=== PATIENT | male | born 1970 | race Caucasian/White ===

== ENCOUNTER 2017-05-19 17:55 | Emergency (ER) | payer OTHER ==
--- NOTE | 2017-05-19 18:10 | EDM.PDOC ---
ED HPI GENERAL MEDICAL PROBLEM - General Stated Complaint: COUGH, CONGESTION Time Seen by Provider: 05/19/17 17:55 Source of Information: Reports: Patient. Denies: Old Records (No [facility] records available) History Limitations: Reports: No Limitations - History of Present Illness INITIAL COMMENTS - FREE TEXT/NARRATIVE: Patient drove himself to the emergency room via private automobile for evaluation of progressive nasal drainage and yellowish productive cough with some secondary hemoptysis during the last few days. He has not had an influenza booster this season. His did have similar type symptoms 1 week ago, however she did not require antibiotics. Patient does have a history of asthma and severe pneumonia secondary to influenza A requiring hospitalization last year. No other known exposure to infection, including influenza, strep throat, etc. He does complain of a severe 10/10 sore throat with fever of 100.4 a couple of days ago. He has been using OTC cold and cough preparations, however no antipyretic medications today. The patient denies any chest pain/pressure, heart flutter, dizziness, orthostasis, orthopnea, diaphoresis, paresthesias, recent decreased exercise tolerance, or any other anginal-type symptoms. No recent history of abdominal pain, heartburn, nausea, diarrhea, melena, gross hematochezia, or any food intolerance, including fatty foods, etc. with normal bowel movement at about 6 AM this morning. He also denies any gross hematuria, colic, or other UTI symptoms. Onset: Gradual Onset Date: 05/14/17 Duration: Constant, Getting Worse Location: Reports: Other (Sore throat as above). Denies: Head, Face, Neck, Chest, Abdomen, Back, Pelvis, Generalized, Radiates to Quality: Reports: Same as Previous Episode, Sharp Improves with: Reports: None Worsens with: Reports: None Context: Reports: Sick Contact (As above) Associated Symptoms: Reports: Cough, cough w sputum, Fever/Chills. 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: Reports: Other Medication(s) (As above) chest pain Pain Score (Numeric/FACES): 1 (Nonspecific pain with coughing only with no pleurisy) - Related Data Allergies Allergy/AdvReac Type Severity Reaction Status Date / Time No Known Allergies Allergy Verified 05/19/17 18:46 Home Meds: Home Meds Albuterol Sulfate [Proair Hfa] 2 puff INH Q4HR PRN 05/19/17 [History] Dextromethorphan/guaiFENesin [Mucinex DM ER 600-30 MG] 1 tab PO BID #20 tab.er 05/19/17 [Rx] Fluticasone Propionate [Flonase] 2 spray INH DAILY 05/19/17 [History] Multivitamin [Multivitamins] 1 tab PO DAILY 05/19/17 [History] Past Medical History HEENT History: Reports: Allergic Rhinitis. Denies: Hard of Hearing, Impaired Vision Cardiovascular History: Denies: High Cholesterol, Hypertension Respiratory History: Reports: Asthma, Bronchitis, Recurrent Endocrine/Metabolic History: Reports: Other (See Below) Other Endocrine/Metabolic History: Hyperglycemia treated with diet - Past Surgical History HEENT Surgical History: Reports: Oral Surgery, Other (See Below) Other HEENT Surgeries/Procedures: [place] teeth extraction x 4 in 2000 Male Surgical History: Reports: Circumcision, Vasectomy, Other (See Below) Other Male Surgeries/Procedures: Circumcision as an . Vasectomy in 2009. 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 ED EXAM, GENERAL - Physical Exam Exam: See Below Exam Limited By: No Limitations General Appearance: Alert, WD/WN, No Apparent Distress Eye Exam: Bilateral Eye: EOMI, Normal Inspection (No nystagmus), PERRL Ears: Normal External Exam, Normal Canal, Hearing Grossly Normal, Normal TMs Nose: Normal Mucosa, No Blood, Clear Rhinorrhea (Moderate bilateral clear nasal drainage) Throat/Mouth: Normal Lips, Normal Teeth, Normal Gums, Normal Oropharynx (++1 erythema in the posterior pharynx with no pinpoint white exudates or peritonsillar abscess), Normal Voice, No Airway Compromise. No: Dysphagia, Inflammation, Perioral Cyanosis Head: Atraumatic, Normocephalic. No: Facial Swelling, Facial Tenderness, Sinus Tenderness Neck: Normal Inspection, Supple, Non-Tender, Full Range of Motion. No: Lymphadenopathy (L), Lymphadenopathy (R), Thyromegaly Respiratory/Chest: No Respiratory Distress, Lungs Clear, Normal Breath Sounds, No Accessory Muscle Use, Chest Non-Tender. No: Pleural Rub, Retractions Cardiovascular: Normal Peripheral Pulses, Regular Rate, Rhythm, No Edema, No Gallop, No JVD, No Murmur, No Rub. No: Gallop/S3, Gallop/S4, Friction Rub Peripheral Pulses: 2+: Radial (L), Radial (R) GI/Abdominal: Normal Bowel Sounds, Soft, Non-Tender, No Organomegaly, No Distention, No Abnormal Bruit, No Mass. No: Guarding (Male) Exam: Deferred Rectal (Males) Exam: Deferred Back Exam: Normal Inspection, Full Range of Motion. No: CVA Tenderness (L), CVA Tenderness (R), Muscle Spasm Extremities: Normal Inspection, Normal Range of Motion, Non-Tender, Normal Capillary Refill, No Pedal Edema Neurological: Alert, Oriented, CN II-XII Intact, Normal Cognition, Normal Gait, No Motor/Sensory Deficits Psychiatric: Normal Affect, Normal Mood Skin Exam: Warm, Dry, Intact, Normal Color, No Rash Lymphatic: No Adenopathy Course - Vital Signs Last Recorded V/S: Last Vital Signs Temp 37.4 C 05/19/17 18:57 Pulse 87 05/19/17 18:57 Resp 20 05/19/17 18:57 BP 135/73 05/19/17 18:57 Pulse Ox 95 05/19/17 18:57 Vital Signs - 24 hr 05/19/17 05/19/17 17:55 18:57 Temperature [ 36.8 C 37.4 C Oral] Pulse, 91 87 Peripheral [ Left Pulse Oximetry] Respiratory 18 20 Rate Blood Pressure 143/79 H 135/73 [left uppe arm] O2 Sat by Pulse 96 95 Oximetry - Orders/Labs/Meds Orders: Active Orders 24 hr Category Date Time Status Chest 2V [CR] Urgent Exams 05/19/17 18:12 Taken CULTURE BLOOD [BC] Stat Lab 05/19/17 18:20 Received CULTURE BLOOD [BC] Stat Lab 05/19/17 18:45 Received CULTURE SPUTUM + SMEAR [] Routine Lab 05/19/17 18:11 Ordered CULTURE STREP A CONFIRMATION [] Stat Lab 05/19/17 18:10 Results STREP SCRN A RAPID W CULT CONF [] Stat Lab 05/19/17 18:10 Results Blood Culture x2 Reflex Set [OM.PC] Urgent Oth 05/19/17 18:11 Ordered Labs: Laboratory Tests 05/19/17 05/19/17 Range/Units 18:20 18:20 WBC 6.6 (4.0-10.2) K/uL RBC 4.92 (4.33-5.41) M/uL Hgb 14.7 (13.1-16.8) g/dL Hct 42.5 (39.0-49.0) % MCV 86.4 (84.0-98.0) fL MCH 29.9 (28.2-33.3) pg MCHC 34.6 (31.7-36.0) g/dL RDW 13.9 (11.2-14.1) % Plt Count 140 L (150-350) K/uL Neut % (Auto) 51.2 (45.0-80.0) % Lymph % (Auto) 33.9 (10.0-50.0) % [place] % (Auto) 12.4 (2.0-14.0) % Eos % (Auto) 2.3 (0.0-5.0) % Baso % (Auto) 0.2 (0.0-2.0) % Neut # (Auto) 3.38 (1.40-7.00) K/uL Lymph # (Auto) 2.24 (0.50-3.50) K/uL [place] # (Auto) 0.82 (0.00-1.00) K/uL Eos # (Auto) 0.15 (0.00-0.50) K/uL Baso # (Auto) 0.01 (0.00-0.20) K/uL Sodium 141 (136-145) mmol/L Potassium 3.5 (3.5-5.1) mmol/L Chloride 103 (98-107) mmol/L Carbon Dioxide 29.4 (21.0-32.0) mmol/L BUN 19 H (7-18) mg/dL Creatinine 1.12 (0.51-1.17) mg/dL Est Cr Clr Drug Dosing TNP Estimated GFR (MDRD) > 60 mL/min Glucose 118 H (74-106) mg/dL Calcium 8.9 (8.5-10.1) mg/dL Total Bilirubin 0.6 (0.2-1.0) mg/dL AST 27 (15-37) U/L ALT 35 (12-78) U/L Alkaline Phosphatase 99 (46-116) IU/L Total Protein 8.2 (6.4-8.2) g/dL Albumin 4.1 (3.4-5.0) g/dL Blood cultures 2 collected Meds: Medications Discontinued Medications Generic Name Dose Route Start Last Admin Trade Name Freq PRN Reason Stop Dose Admin Methylprednisolone Acetate 80 mg 05/19/17 19:13 Depo-Medrol IM 05/19/17 19:14 ONETIME ONE - Radiology Interpretation Free Text/Narrative:: Chest x-ray, PA and lateral, shows evidence of mild to moderate pulmonary obstructive disease with no pulmonary infiltrates, cardiomegaly, CHF, pneumothorax, etc. Departure - Departure Time of Disposition: 19:27 Disposition: Home, Self-Care 01 Condition: Good Clinical Impression: Bronchitis, Hyperglycemia, Asthma, Allergic rhinitis URI (upper respiratory infection) Qualifiers: URI type: unspecified URI Qualified Code(s): J06.9 - Acute upper respiratory infection, unspecified - Discharge Information Prescriptions: Dextromethorphan/guaiFENesin [Mucinex DM ER 600-30 MG] 1 tab PO BID #20 tab.er Instructions: Dextromethorphan; Guaifenesin tablets, Upper Respiratory Infection, Adult, [id number], Methylprednisolone Suspension for Injection, Acute Bronchitis, Adult Referrals: PCP,None [Primary Care Provider] - Forms: ED Department Discharge Additional Instructions: 1. Follow up with your regular provider in 10-14 days as needed, if symptoms persist. 2. Tylenol 650 mg by mouth every 4 hours and/or OTC ibuprofen 2-3 tabs by mouth every 6 hours with food as directed./needed. 3. Hygiene issues as discussed 4. Listerine gargles four times per day, after meals and at bedtime, with additional Chloroseptic lozenges or spray as needed for 10 days and/or until symptoms resolve. - Problem List & Annotations (1) URI (upper respiratory infection) SNOMED Code(s): 43107425 Code(s): J06.9 - ACUTE UPPER RESPIRATORY INFECTION, UNSPECIFIED Status: Chronic Priority: High Current Visit: Yes Onset Date: ~05/14/17 Annotation/Comment:: Probable viral pharyngitis and bronchitis. Symptomatic relief as per discharge instructions. Observe for now. Qualifiers: URI type: unspecified URI Qualified Code(s): J06.9 - Acute upper respiratory infection, unspecified (2) Bronchitis SNOMED Code(s): 97701855 Code(s): J40 - BRONCHITIS, NOT SPECIFIED ACUTE OR CHRONIC Status: Acute Priority: High Current Visit: Yes Onset Date: ~05/14/17 Annotation/ Comment:: No significant asthma exacerbation at this time. Probable viral bronchitis. Symptomatic relief as per discharge instructions. (3) Hyperglycemia SNOMED Code(s): 33071832 Code(s): R73.9 - HYPERGLYCEMIA, UNSPECIFIED Status: Chronic Priority: Medium Current Visit: Yes Annotation/Comment:: Stable by history including recent normal glycosylated hemoglobin (4) Allergic rhinitis SNOMED Code(s): 41240979 Code(s): J30.9 - ALLERGIC RHINITIS, UNSPECIFIED Status: Chronic Priority : Medium Current Visit: Yes Annotation/Comment:: As above, stable by history Qualifiers: Allergic rhinitis trigger: unspecified Allergic rhinitis seasonality: unspecified seasonality Qualified Code(s): J30.9 - Allergic rhinitis, unspecified (5) Asthma SNOMED Code(s): 311549043 Code(s): J45.909 - UNSPECIFIED ASTHMA, UNCOMPLICATED Status: Chronic Priority: Medium Current Visit: Yes Annotation/Comment:: As above. Stable by history. IM Depo-Medrol given per patient's request. Qualifiers: Asthma severity: mild Asthma persistence: intermittent Asthma complication type: uncomplicated Qualified Code(s): J45.20 - Mild intermittent asthma, uncomplicated - Problem List Review Problem List Initiated/Reviewed/Updated: Yes - My Orders Last 24 Hours: My Active Orders 05/19/17 18:10 CULTURE STREP A CONFIRMATION [RM] Stat STREP SCRN A RAPID W CULT CONF [RM] Stat 05/19/17 18:11 CULTURE SPUTUM + SMEAR [RM] Routine Blood Culture x2 Reflex Set [OM.PC] Urgent 05/19/17 18:12 Chest 2V [CR] Urgent 05/19/17 18:20 CULTURE BLOOD [BC] Stat 05/19/17 18:45 CULTURE BLOOD [BC] Stat - Assessment/Plan Last 24 Hours: My Active Orders 05/19/17 18:10 CULTURE STREP A CONFIRMATION [RM] Stat STREP SCRN A RAPID W CULT CONF [RM] Stat 05/19/17 18:11 CULTURE SPUTUM + SMEAR [RM] Routine Blood Culture x2 Reflex Set [OM.PC] Urgent 05/19/17 18:12 Chest 2V [CR] Urgent 05/19/17 18:20 CULTURE BLOOD [BC] Stat 05/19/17 18:45 CULTURE BLOOD [BC] Stat Assessment:: As above Plan: As above. Extensive precautions were given to the patient, who is in agreement with the treatment plan. See Patient Instructions for further treatment and plan.
[2017-05-19 18:39] LABS: CHLORIDE,CL 103 mmol/L (98-107); SODIUM,NA 141 mmol/L (136-145)
[2017-05-19] MEDS ORDERED: methylPREDNISolone Acetate 80 MG/ML SDV IM ONE (19:13)
== END 2017-05-19 19:25 | disposition home or self-care (01) ==
LOC: LL.ED 17:55
DX: J45.909 Unspecified asthma, uncomplicated (principal); J06.9 Acute upper respiratory infection, unspecified; R73.9 Hyperglycemia, unspecified; Z79.899 Other long term (current) drug therapy
CPT/HCPCS: 36415; 71046; 80053; 85025; 87040; 87081; 87430; 87804; 96372; 99284; J1040

== ENCOUNTER 2018-10-08 10:06 | Emergency (ER) | payer OTHER ==
[2018-10-08] MEDS ORDERED: methylPREDNISolone Sodium Succinate 125 MG/2 ML SDV IM ONE (10:19)
[2018-10-08] MEDS ORDERED: Fluconazole 100 MG Tab PO ONE (10:44)
[2018-10-08] MEDS ORDERED: Cyanocobalamin (Vitamin B12) 1,000 MCG/ML SDV IM ONE (11:09)
[2018-10-08] MEDS ORDERED: Folic Acid 1 MG Tab PO ONE (11:09)
--- NOTE | 2018-10-08 11:17 | EDM.PDOC ---
ED HPI GENERAL MEDICAL PROBLEM - General Chief Complaint: Allergic Reaction Stated Complaint: allergic reaction Time Seen by Provider: 10/08/18 10:17 Source of Information: Reports: Patient History Limitations: Reports: No Limitations - History of Present Illness INITIAL COMMENTS - FREE TEXT/NARRATIVE: Patient comes to ER with complaint of suspected allergic reaction to PCN. Was started on PCN last weekend for possible tooth infection. Over the past few days he noticed that he developed canker sores/swelling of lips, mild eyelid puffiness, a red pruritic spot on right chest, and canker type sores in genital area. Patient discontinued the PCN yesterday. Had not had previous reactions to any antibiotics. No cough/swelling of throat/SOB. No other reported changes. Took 50mg Benadryl this morning. Lips Pain Score (Numeric/FACES): 3 - Related Data Allergies Allergy/AdvReac Type Severity Reaction Status Date / Time No Known Allergies Allergy Verified 10/08/18 10:14 Home Meds: Home Meds Albuterol Sulfate [Proair Hfa] 2 puff INH Q4HR PRN 05/19/17 [History] Fluticasone Propionate [Flonase] 2 spray INH DAILY PRN 05/19/17 [History] Multivitamin [Multivitamins] 1 tab PO DAILY 05/19/17 [History] Dextromethorphan/guaiFENesin [Mucinex DM ER 600-30 MG] 1 tab PO BID PRN [History] Past Medical History HEENT History: Reports: Allergic Rhinitis. Denies: Hard of Hearing, Impaired Vision Respiratory History: Reports: Asthma, Bronchitis, Recurrent Endocrine/Metabolic History: Reports: Other (See Below) Other Endocrine/Metabolic History: Hyperglycemia treated with diet - Past Surgical History HEENT Surgical History: Reports: Oral Surgery, Other (See Below) Other HEENT Surgeries/Procedures: [place] teeth extraction x 4 in 2000 Male Surgical History: Reports: Circumcision, Vasectomy, Other (See Below) Other Male Surgeries/Procedures: Circumcision as an infant. Vasectomy in 2009. 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 Denies: Shortness of Breath, Wheezing Cardiovascular: Reports: No Symptoms GI/Abdominal: Reports: No Symptoms : Reports: No Symptoms Musculoskeletal: Reports: No Symptoms Skin: Reports: Other (canker sores around genital area, small red pruritic patch right chest) Neurological: Reports: No Symptoms Psychiatric: Reports: No Symptoms Hematologic/Lymphatic: Reports: No Symptoms Immunologic: Reports: No Symptoms ED EXAM GENERAL NO PERIP PULSE - Physical Exam Exam: See Below Exam Limited By: No Limitations General Appearance: Alert, WD/WN, No Apparent Distress Eye Exam: Bilateral Eye: EOMI, PERRL, Other (no obvious lid edema. No drainage/ swelling/significant color change) Ears: Normal External Exam, Normal Canal Nose: Normal Inspection Throat/Mouth: Normal Inspection, Normal Lips, Normal Teeth, Normal Voice, No Airway Compromise, Other (no uvular edema noted. ) Head: Atraumatic, Normocephalic Neck: Normal Inspection, Supple, Non-Tender, Full Range of Motion Respiratory/Chest: No Respiratory Distress, Lungs Clear, Normal Breath Sounds, No Accessory Muscle Use, Chest Non-Tender Cardiovascular: Normal Peripheral Pulses, No Murmur GI/Abdominal: Normal Bowel Sounds, Soft, Non-Tender, No Distention (Male) Exam: Deferred Rectal (Males) Exam: Deferred Back Exam: No: CVA Tenderness (L), CVA Tenderness (R), Muscle Spasm, Paraspinal Tenderness, Vertebral Tenderness Extremities: Normal Inspection, Normal Capillary Refill Neurological: Alert, Oriented, Normal Cognition, Normal Gait Psychiatric: Normal Affect, Normal Mood Skin Exam: Warm, Dry, Intact, Other (small 5cm round area of redness right upper chest. No scaling/pustules) Course - Vital Signs Last Recorded V/S: Last Vital Signs Temp 36.8 C 10/08/18 10:16 Pulse 89 10/08/18 10:16 Resp 18 10/08/18 10:16 BP 140/98 H 10/08/18 10:16 Pulse Ox 97 10/08/18 10:16 - Orders/Labs/Meds Meds: Medications Discontinued Medications Generic Name Dose Route Start Last Admin Trade Name Freq PRN Reason Stop Dose Admin Cyanocobalamin 1,000 mcg 10/08/18 11:09 Vitamin B12 IM 10/08/18 11:10 ONETIME ONE Fluconazole 100 mg 10/08/18 10:44 Diflucan PO 10/08/18 10:45 ONETIME ONE Folic Acid 5 mg 10/08/18 11:09 Folic Acid PO 10/08/18 11:10 ONETIME ONE Methylprednisolone Sodium Succinate 125 mg 10/08/18 10:19 10/08/18 10:36 Solu-Medrol IM 10/08/18 10:20 125 mg ONETIME ONE Administration - Re-Assessments/Exams Free Text/Narrative Re-Assessment/Exam: 10/08/18 11:18 Solumedrol IM given. Do not suspect viral infection contributing to ulcerative changes at this time. Most likely reaction from antibiotics. Will give single dose Diflucan. B12 and Folic acid have been shown by some to be helpful for canker sores. Single doses of each given in ER. Benadryl avoided due to patient being on duty today. Precautions reviewed. To follow up as needed over weekend if problems worsen. To call Dental office where root canal is scheduled and see if they wish for him to change to a different antibiotic prior to Thursday's appointment. BP usually 120/80 Suspect today's elevation due to stress/drug reaction. To get it rechecked next week once he is feeling better. Departure - Departure Time of Disposition: 11:21 Disposition: Home, Self-Care 01 Condition: Good Clinical Impression: Canker sore Drug reaction Qualifiers: Encounter type: initial encounter Qualified Code(s): T50.905A - Adverse effect of unspecified drugs, medicaments and biological substances, initial encounter - Discharge Information *PRESCRIPTION DRUG MONITORING PROGRAM REVIEWED*: Not Applicable *COPY OF PRESCRIPTION DRUG MONITORING REPORT IN PATIENT CAYLA: Not Applicable Instructions: Drug Allergy, [id number], Stomatitis, [id number], Canker Sores Referrals: Mary Noble PA-C [Primary Care Provider] - Additional Instructions: Call your dentist today to check if they wish for you to change to a different antibiotic over the weekend. OK to take Benadryl 2tabs every 6 hours when off duty. Consider taking Folic acid 3-5mg daily for the next week or so to try to help with the canker sores. Follow up as needed over the weekend if you have any worsening problems/more severe reaction. Especially any shortness of breath or swelling of throat. Get BP rechecked next week.
== END 2018-10-08 12:15 | disposition home or self-care (01) ==
LOC: LL.ED 10:06
DX: T50.905A Adverse effect of unspecified drugs, medicaments and biological substances, initial encounter (principal); K12.0 Recurrent oral aphthae; J45.909 Unspecified asthma, uncomplicated; Z79.899 Other long term (current) drug therapy
CPT/HCPCS: 96372; 99283; A9270; J2930; J3420